=== PATIENT | female | born 1980 | race Caucasian/White ===

== ENCOUNTER → 2017-01-31 | Outpatient (CLI) | payer BC | END | disposition home or self-care (01) | LOC: C.PAPS 12:47 | PROVIDERS: ATTEND Physician Assistant | DX: Z01.419 Encounter for gynecological examination (general) (routine) without abnormal findings (principal); G43.009 Migraine without aura, not intractable, without status migrainosus; R87.610 Atypical squamous cells of undetermined significance on cytologic smear of cervix (ASC-US) ==